=== PATIENT | female | born 1965 | race Caucasian/White ===

== ENCOUNTER 2020-06-20 17:07 | Observation (INO) | payer BC ==
[~2020-06-20 17:07] MED LIST: Iopamidol-370 76% 500 ML 1 ML ONE
[2020-06-20] MEDS ORDERED: Ondansetron PF 4 MG/2 ML Vial ONE ×2 (17:49→21:00)
[2020-06-20] MEDS ORDERED: Morphine 4 MG/ML VIAL ONE (17:49)
[2020-06-20 18:26] LABS: #Basophils 0.1 thou/uL (0.0-0.2); #Lymphocytes 0.6 thou/uL (1.20-3.40); #Monocytes 0.3 thou/uL (0.11-0.59); #Neutrophils 5.7 thou/uL (1.40-6.50); %Basophils 0.8 % (0.0-1.0); %Eosinophils 0.2 % (0.0-10.0); %Lymphocytes 9.3 % (21.0-51.0); %Monocytes 4.8 % (0.0-10.0); %Neutrophils 84.9 % (42.0-75.0); Hemoglobin 11.6 g/dL (12.0-16.0); Mean Corpuscular HGB CONC 32.2 g/dL (32.0-36.0); Mean Corpuscular Hemoglobin 28.1 pg (27.0-31.0); Mean Corpuscular Volume 87.4 fL (78.0-98.0); Mean Platelet Volume 8.2 fL (7.4-10.4); Platelet Count 268 thou/uL (130-400); RBC Distribution Width 13.3 % (11.5-14.5); Red Blood Cell (RBC) Count 4.11 mill/uL (4.20-5.40); White Blood Cell (WBC) Count 6.7 thou/uL (4.8-10.8)
[2020-06-20 18:32] LABS: PTT 23.5 sec (22.9-36.1); Prothrombin Time 13.1 sec (12.0-14.7)
[2020-06-20] MEDS ORDERED: Tranexamic Acid 1,000 MG/10 ML VIAL ONE (18:32)
[2020-06-20] MEDS ORDERED: HYDROmorphone 0.5 MG/0.5 ML SYRINGE ONE (18:32)
[2020-06-20] MEDS ORDERED: Midazolam HCl 5 mg/ml Vial ONE (18:36)
[2020-06-20] MEDS ORDERED: Silver Nitrate Application 1 EACH ONE (19:09)
[2020-06-20] MEDS ORDERED: Acetaminophen 325 MG TAB PO PRN (20:06)
[2020-06-20] MEDS ORDERED: HYDROcodone/Acetaminophen 7.5/325 mg Tablet PO PRN ×2 (20:06)
[2020-06-20] MEDS ORDERED: Acetaminophen 650 MG Suppository PR PRN (20:06)
--- NOTE | 2020-06-20 20:24 | PDOC.HHP ---
Hospitalist HPI - History of Present Illness epixtasis History of Present Illness: Case of an 55 y/o female with a pmhx who esophageal stricture, who comes to hospital due to an episode of nose bleed. patient states she was on her usual state of health until yesterday when the bleeding started. patient stated apart from her bleeding she had increased b/p on the 200s and a headache. patient refers she was taken to an ED where they stopped the bleeding and sent her home. today around 10:30 am patient again began the the nose bleeds, and they where unable to stop it again for which they took pt to [facility]. There they had to use a deep posterior packing to stopped the bleeding. likely after given multiple medications for bloop pressure and pain, patient had an episode of hypotension with systolic b/p dropped into the 50s for which she was sent there for further evaluation. At this institution ED patient again started bleeding, packing was attempted but was unsuccesful and ent was called who did a bedside packing at the ED and recommended admission. hospitalist was called for further evaluation and management. Patient denies any history of bleeding disorders, personal history of lymphoma or leukemia. Hospitalist ROS - Review of Systems All other systems reviewed; all pertinent +/- noted in HPI/Subj Hospitalist History - Past Surgical History Other Surgical History: sinus debriedment esophageal biopsy - Family History Family History: reports: hypertension - Social History Smoking Status: Never smoker Alcohol: reports: Occassional Drugs: reports: none - Exam General Appearance: NAD, awake alert Eye: PERRL, anicteric sclera ENT: normocephalic atraumatic, no oropharyngeal lesions Neck: supple, symmetric, no JVD, no thyromegaly Heart: RRR, no murmur, no gallops Respiratory: CTAB, no wheezes, no rales, no ronchi Gastrointestinal: soft, non-tender, non-distended Extremities: no cyanosis, no clubbing, no edema Skin: normal turgor, no lesions Neurological: cranial nerve grossly intact, normal sensation to touch Musculoskeletal: normal tone, normal strength, no muscle wasting Psychiatric: normal affect, normal behavior, A&O x 3 Hospitalist Results - Labs Result Diagrams: 06/20/20 18:16 Lab results: WBC 6.7 thou/uL (4.8-10.8) 06/20/20 18:16 Hgb 11.6 g/dL (12.0-16.0) L 06/20/20 18:16 Hct 35.9 % (36.0-47.0) L 06/20/20 18:16 MCV 87.4 fL (78.0-98.0) 06/20/20 18:16 Plt Count 268 thou/uL (130-400) 06/20/20 18:16 Neutrophils % 84.9 % (42.0-75.0) H 06/20/20 18:16 Troponin I Less than 0.010 ng/mL (< 0.028) 06/20/20 18:16 Hospitalist H&P A/P - Problem (1) Epistaxis Code(s): R04.0 - EPISTAXIS Status: Acute (2) Esophageal stricture Code(s): K22.2 - ESOPHAGEAL OBSTRUCTION Status: Acute (3) Hypertensive urgency Code(s): I16.0 - HYPERTENSIVE URGENCY Status: Acute - Plan Plan: 55y/o female with the stated pmhx who presents with epistaxis epistaxis - currently with dobule packing - ent consulted - dylan hg, will repeat in am - adequate inr, plts - will start augmenting as prophylaxis while nasal packig is present - pain management htn urgency - systolic b/p in the 200s - was treated with pain + b/p meds - had episode of hypotension - currently adequate b/p will monitor
--- NOTE | 2020-06-20 20:29 | HP ---
CHIEF COMPLAINT: Epistaxis. BRIEF HISTORY: This is a 55-year-old female, seen in consultation by Dr. Jones in the emergency room for epistaxis. The patient had nose bleeding yesterday, has spontaneously while traveling to [place]. Her bleeding stopped by the time she was able to come home, she had a second episode of bleeding that started today during jehovah's witness and presented to the [facility]. They placed an inflatable nasal pack on the right side, which temporarily ceased the bleeding; however, she had persistent bleeding and was transferred for further care here and the emergency room was offered to place the pack on the 2nd side, but the patient is requesting ENT evaluation the patient sitting in bed with a minimal amount of active bleeding present. After obtaining consent, a pack was placed in the left nasal cavity and the bleeding immediately stopped. There was no bleeding in the oral cavity or oropharynx following this either. PAST MEDICAL HISTORY: Noncontributory. MEDICATIONS: None. No aspirin or blood thinners recently. ALLERGIES: NO KNOWN DRUG ALLERGIES. REVIEW OF SYSTEMS: No chest pains, palpitations. She did have an episode of possible bradycardia versus regular episode after placement of the 1st pack. PHYSICAL EXAMINATION: VITAL SIGNS: Blood pressure is 177/110. NOSE: Left nasal cavity was visualized. There was no active bleeding noted from the nasal cavity. There was oozing from the right side, there was dripping posteriorly and around the nasal septum into the posterior aspect of the left nasal cavity. Nasal pack was placed and gently inflated with minimal amounts of air and then bleeding immediately stopped. The patient was allowed to relax and pain medicines were administered, blood pressure 140/80. ORAL CAVITY: Oropharynx was examined, showed tonsils 2+. No active posterior bleeding was noted. NECK: No lymphadenopathy. No masses. ASSESSMENT: Epistaxis, likely anterior epistaxis from the right side, but this required bilateral pressure on the nasal septum to control the epistaxis episode in light of her hypertension likely related to anxiety and pain. PLAN: She will remain admitted overnight with bilateral nasal packs. If pain is too severe, there was no bleeding, we can remove 1 to 2 mL from the left side 1st and then the right side as needed. If there is any increase in bleeding, I discussed with the patient. We will need to inflate the packs. At this point, I discussed with the patient. I did not see evidence of a posterior bleeding, but we will keep close observation on her. I anticipate that she will be discharged in the morning if she does well overnight and we can remove the left nasal pack in our clinic tomorrow and likely remove the right nasal pack on Sunday or Sunday and this will also allow nasal endoscopic exam at that time Job ID: [id number]
[2020-06-20 20:48] LABS: Troponin I Less than 0.010 ng/mL (< 0.028)
--- NOTE | 2020-06-20 21:44 | CT ---
CT face with IV contrast HISTORY: Severe epistaxis. Prior sinus surgery. FINDINGS: Uncinate processes are surgically absent with large antral windows. Portions of the ethmoid septae are also absent, so that the right nasal tube extends superiorly into the large right anterior ethmoid sinus cavity. Left nasal tube extends posteriorly to the nasopharyngeal mucosa. Right maxillary sinus is filled with hyperdense fluid and mucosal thickening. Small amount of hyperde nse fluid in the left maxillary sinus. No aggressive mass is apparent. Globes are intact. Mandible and zygomatic arches within normal limits . Very mild leftward deviation of the nasal septum. IMPRESSION : Postoperative changes. Evidence of acute blood within the sinuses. No aggressive cause is evident. The right nasal tube extends through a postoperative defect into the right ethmoid air cells and shou ld not be advanced further. Findings were called to Dr. Jones emergency department.
[2020-06-20 22:34] VITALS: BMI 29.2
[2020-06-20] MEDS: Amoxicillin/Potassium Clav 875 MG TAB PO SCH (23:55)
[2020-06-20] MEDS: Famotidine 20 MG TAB PO SCH (23:55)
[2020-06-21] MEDS: Morphine 2 MG/ML VIAL SLOW IVP PRN ×2 (00:12→00:41)
[2020-06-21] MEDS: Promethazine HCl 12.5 MG in Sodium Chloride 0.9% 50 ML IVPB PRN ×2 (00:12→06:04)
[2020-06-21 00:24] LABS: Troponin I Less than 0.010 ng/mL (< 0.028)
[2020-06-21 03:29] VITALS: TEMP 98.1
[2020-06-21] MEDS ORDERED: Morphine 4 MG/ML VIAL SLOW IVP PRN (06:38)
[2020-06-21 06:40] LABS: ALT (SGPT) 14 U/L (8-55); AST (SGOT) 15 U/L (5-34); Albumin 3.7 g/dL (3.5-5.0); Alkaline Phosphatase 40 U/L (40-110); Anion Gap 10 mmol/L (10-20); BUN (Urea Nitrogen) 17 mg/dL (9.8-20.1); Band 1 % (5-11); Bilirubin, Total 0.3 mg/dL (0.2-1.2); Calc. Creatinine Clearance 104 mL/min (70-130); Calcium 8.1 mg/dL (7.8-10.44); Carbon Dioxide 25 mmol/L (22-29); Chloride 105 mmol/L (98-107); Globulin 2.7 g/dL (2.4-3.5); Glucose 93 mg/dL (70-105); Hemoglobin 10.2 g/dL (12.0-16.0); Lymphocytes 27 % (21-51); MDiff Complete? YES; Mean Corpuscular HGB CONC 31.8 g/dL (32.0-36.0); Mean Corpuscular Hemoglobin 27.8 pg (27.0-31.0); Mean Corpuscular Volume 87.3 fL (78.0-98.0); Mean Platelet Volume 8.3 fL (7.4-10.4); Monocytes 13 % (0-10); Neutrophil 59 % (42-75); Platelet Count 270 thou/uL (130-400); Platelet Morphology Comment Appears Adequate; Potassium 4.1 mmol/L (3.5-5.1); Protein, Total 6.4 g/dL (6.0-8.3); RBC Distribution Width 13.5 % (11.5-14.5); Red Blood Cell (RBC) Count 3.67 mill/uL (4.20-5.40); Sodium 136 mmol/L (136-145); White Blood Cell (WBC) Count 6.5 thou/uL (4.8-10.8)
--- NOTE | 2020-06-21 07:32 | PDOC.HOSPP ---
- Subjective Encounter Date: 06/21/20 Encounter Time: 10:20 Subjective: Patient without further bleeding overnight. Spoke with Dr. Frank and he wants to see her in clinic in one hour to remove one pack. He will take care of abx Rx and pain meds. - Objective Vital Signs & Weight: Vital Signs (12 hours) Temp Pulse Resp BP Pulse Ox 06/21/20 03:14 98.1 F 69 14 146/79 H 99 06/20/20 22:20 97.9 F 68 18 145/89 H 98 Weight Weight 186 lb 12.8 oz I&O: 06/20/20 06/21/20 06/22/20 06:59 06:59 06:59 Intake Total 300 Balance 300 Result Diagrams: 06/21/20 06:01 06/21/20 06:01 Hospitalist ROS - Review of Systems Constitutional: denies: fever, chills Respiratory: denies: cough, shortness of breath Cardiovascular: denies: chest pain, palpitations Gastrointestinal: denies: nausea, vomiting, abdominal pain - Medication Medications: Active Medications Generic Name Dose Route Start Last Admin Trade Name Freq PRN Reason Stop Dose Admin Hydrocodone Bitart/Acetaminophen 1 tab 06/20/20 20:06 06/21/20 03:44 Hydrocodone/Acetaminophen 7.5/325 Mg Tablet PO 1 tab Q4H PRN Administration Moderate Pain (4-6) Amoxicillin/Clavulanate Potassium 875 mg 06/20/20 21:00 06/20/20 23:55 Amoxicillin/Potassium Clav 875 Mg Tab PO Not Given Q12HR JOHN Famotidine 20 mg 06/20/20 21:00 06/20/20 23:55 Famotidine 20 Mg Tab PO Not Given BID JOHN Promethazine HCl 12.5 mg/ 50.5 mls @ 202 mls/hr 06/20/20 22:56 06/21/20 06:04 Sodium Chloride IVPB 50.5 mls Q6H PRN Administration Nausea - Exam General Appearance: NAD, awake alert ENT: moist mucosa ENT - other findings: bilateral inflated nasal packs in place Heart: RRR, no murmur, no gallops, no rubs Respiratory: CTAB, no wheezes, no rales, no ronchi Gastrointestinal: soft, non-tender, non-distended, normal bowel sounds Psychiatric: normal affect, normal behavior, A&O x 3 Hosp A/P (1) Epistaxis Code(s): R04.0 - EPISTAXIS Status: Acute (2) Hypertensive urgency Code(s): I16.0 - HYPERTENSIVE URGENCY Status: Acute (3) Esophageal stricture Code(s): K22.2 - ESOPHAGEAL OBSTRUCTION Status: Acute - Plan 55y/o female with the stated pmhx who presents with epistaxis Epistaxis - currently with dobule packing - ent consulted - adeqaute hg, stable this morning - adequate inr, plts - started augmentin as prophylaxis while nasal packig is present per ENT - pain management Hypertensive urgency - systolic b/p in the 200s on presentation - was treated with pain + b/p meds - had episode of hypotension, now resolved - currently adequate b/p in 140s, will monitor Disposition: Patient stable for discharge from out standpoint, will try to get out quickly so can get to ENT clinic by 11:00. If still needs pain meds or abx then Dr. Frank can take care of that.
[2020-06-21 08:36] VITALS: BP 113/70
[2020-06-21] MEDS: Amoxicillin/Potassium Clav 875 MG TAB PO SCH (09:41)
[2020-06-21] MEDS: Famotidine 20 MG TAB PO SCH (09:41)
--- NOTE | 2020-06-21 12:31 | PDOC.DS.DS ---
Provider - Provider Date of Admission: 06/20/20 18:45 Date of Discharge: 06/21/20 Admitting Provider: Aris Gilliam MD Consultations: ENT (Dr. Amilcar Melendez) Primary Care Physician: AVINASH SHAH MD Course - Hospital Course Hospital Course: 55y/o female with the stated pmhx who presents with epistaxis Epistaxis - currently with double packing - ent consulted - adeqaute hg, stable this morning - adequate inr, plts - started augmentin as prophylaxis while nasal packing is present per ENT - pain management Hypertensive urgency - systolic b/p in the 200s on presentation - was treated with pain + b/p meds - had episode of hypotension, now resolved - currently adequate b/p in 140s Disposition: Patient stable for discharge so will try to get out quickly so can get to ENT clinic by 11:00. If still needs pain meds or abx then Dr. Melendez can take care of that. Pertinent Studies: CT face with IV contrast HISTORY: Severe epistaxis. Prior sinus surgery. FINDINGS: Uncinate processes are surgically absent with large antral windows. Portions of the ethmoid septae are also absent, so that the right nasal tube extends superiorly into the large right anterior ethmoid sinus cavity. Left nasal tube extends posteriorly to the nasopharyngeal mucosa. Right maxillary sinus is filled with hyperdense fluid and mucosal thickening. Small amount of hyperdense fluid in the left maxillary sinus. No aggressive mass is apparent. Globes are intact. Mandible and zygomatic arches within normal limits. Very mild leftward deviation of the nasal septum. IMPRESSION : Postoperative changes. Evidence of acute blood within the sinuses. No aggressive cause is evident. The right nasal tube extends through a postoperative defect into the right ethmoid air cells and should not be advanced further. Resuscitation Status: 06/20/20 20:06 Resuscitation Status Routine Resuscitation Status: FULL: Full Resuscitation - Labs Lab Results: 06/21/20 06:01 06/21/20 06:01 Abnormal Lab Results - Last 48 hrs 06/20/20 18:16: RBC 4.11 L, Hgb 11.6 L, Hct 35.9 L, Neutrophils % 84.9 H, Lymphocytes % 9.3 L, Lymphocytes # 0.6 L 06/21/20 06:01: RBC 3.67 L, Hgb 10.2 L, Hct 32.1 L, MCHC 31.8 L, Band Neuts % (Manual) 1 L, Monocytes % (Manual) 13 H - Physical Exam Vitals: Vital Signs (12 hours) Temp Pulse Resp BP Pulse Ox 06/21/20 08:35 73 113/70 06/21/20 07:17 98.1 F 72 18 164/80 H 100 06/21/20 03:14 98.1 F 69 14 146/79 H 99 Weight Weight 186 lb 12.8 oz Physical Exam: The patient was seen and examined on the day of discharge. Problem - Discharge Plan Assessment: Patient with epistaxis controlled with bilateral nasal packs. Hypertensive urgency resolved, without evidence of underlying hypertension. Likely related to stress-induced. Plan of Treatment: We will discharge to follow-up with Dr. Melendez's clinic at 11:00 this morning. He will give discharge medications at that time. - Problem (1) Epistaxis Code(s): R04.0 - EPISTAXIS Status: Acute (2) Hypertensive urgency Code(s): I16.0 - HYPERTENSIVE URGENCY Status: Acute (3) Esophageal stricture Code(s): K22.2 - ESOPHAGEAL OBSTRUCTION Status: Acute - Time spent with Patient (mins): 20 Plan - Discharge Medications Home Medications: Medication Instructions Recorded Confirmed Type Esomeprazole Magnesium 40 mg PO HS 06/20/20 06/20/20 History Allergies: procaine [From Novocain] Allergy (Verified 06/20/20 22:38) - Discharge Instructions Discharge Instructions:: activity as tolerated, dc to Dr. melendez's clinic. Activity:: Activity as Tolerated Nourishment:: Heart Healthy Diet Therapies:: Not Applicable Equipment/Supplies:: Not Applicable IV Therapy:: Not Applicable - Follow up Plan Referrals: AVINASH SHAH MD [Primary Care Provider] - (CALL MD'S OFFICE FOR MEDICAL PROBLEMS.) Derek Melendez MD [Active] - 06/21/20 11:00 am (SEE DR. MELENDEZ TODAY IN HIS CLINIC. ) Disposition: HOME Quality - Care Measures CORE MEASURES:: N/A
== END 2020-06-21 10:45 | disposition home or self-care (01) ==
LOC: ERS 17:07 → ERHOLD 18:45 → SJJU 22:28
PROVIDERS: ADMIT Internal Medicine; ATTEND Emergency Medicine
DX: R04.0 Epistaxis (principal); I16.0 Hypertensive urgency; K22.2 Esophageal obstruction; Z79.899 Other long term (current) drug therapy; Z88.4 Allergy status to anesthetic agent
CPT/HCPCS: 36415; 70487; 80053; 84484; 85007; 85027; 86850; 86900; 86901; 93005; 96374; 96375; 96376; G0378; J1170; J2250; J2270; J2405; J2550; Q9967

== ENCOUNTER 2020-06-24 19:49 | Emergency (ER) | payer BC | END 2020-06-24 21:59 | disposition home or self-care (01) | LOC: ERS 19:49 | DX: R04.0 Epistaxis (principal); I10 Essential (primary) hypertension; Z79.899 Other long term (current) drug therapy | CPT/HCPCS: 99283 ==